=== PATIENT | male | born 1990 | race African-American/Black ===

== ENCOUNTER 2016-11-29 08:03 | Emergency (ER) | payer SELFPAY ==
[2016-11-29] MEDS ORDERED: Ondansetron HCl/PF 4 MG/2 ML Vial ONE (08:19)
[2016-11-29] MEDS ORDERED: Pantoprazole 40 MG VIAL ONE (08:19)
[2016-11-29 08:41] LABS: #Basophils 0.1 thou/uL (0.0-0.2); #Eosinphils 0.2 thou/uL (0.0-0.7); #Lymphocytes 2.1 thou/uL (1.20-3.40); #Monocytes 0.6 thou/uL (0.11-0.59); #Neutrophils 6.3 thou/uL (1.40-6.50); %Basophils 1.5 % (0.0-1.0); %Eosinophils 1.9 % (0.0-10.0); %Lymphocytes 22.8 % (21.0-51.0); %Monocytes 6.4 % (0.0-10.0); %Neutrophils 67.4 % (42.0-75.0); Hemoglobin 14.3 g/dL (14.0-18.0); Mean Corpuscular HGB CONC 34.3 g/dL (32.0-36.0); Mean Corpuscular Hemoglobin 32.6 pg (27.0-31.0); Mean Corpuscular Volume 94.9 fl (80.0-94.0); Mean Platelet Volume 8.3 fL (7.4-10.4); Platelet Count 224 thou/uL (130-400); RBC Distribution Width 12.1 % (11.5-14.5); Red Blood Cell (RBC) Count 4.38 mill/uL (4.70-6.10); White Blood Cell (WBC) Count 9.3 thou/uL (4.8-10.8)
[2016-11-29 08:56] LABS: ALT (SGPT) 16 U/L (8-55); AST (SGOT) 21 U/L (5-34); Albumin 4.5 g/dL (3.5-5.0); Alkaline Phosphatase 64 U/L (40-150); Anion Gap 16 mmol/L (10-20); BUN (Urea Nitrogen) 10 mg/dL (8.9-20.6); Bilirubin, Total 0.7 mg/dL (0.2-1.2); Calc. Creatinine Clearance 0 mL/min (70-130); Calcium 9.1 mg/dL (7.8-10.44); Carbon Dioxide 20 mmol/L (22-29); Chloride 108 mmol/L (98-107); Estimated GFR-MDRD Greater than 90; Globulin 3.6 g/dL (2.4-3.5); Glucose 95 mg/dL (70-105); Lipase 27 U/L (8-78); Potassium 4.4 mmol/L (3.5-5.1); Protein, Total 8.1 g/dL (6.0-8.3); Sodium 140 mmol/L (136-145)
[2016-11-29 09:09] LABS: Blood, Urine Negative (Negative); Clarity Clear (Clear); Glucose, Urine (Dipstick) Negative (Negative); Leukocyte Trace (Negative); Nitrite Negative (Negative); Protein, Urine (Dipstick) Trace mg/dL (Neg-Trace); Specific Gravity, Urine 1.015 (1.005-1.030); pH, Urine 6.5 (5.0-9.0)
[2016-11-29 09:16] LABS: Bilirubin Negative (Negative)
[2016-11-29 09:17] LABS: Bacteria/HPF None Seen HPF (None Seen); RBC/HPF None Seen HPF (0-3); Squamous Epithelial 0-3 HPF (0-3); WBC/HPF 0-3 HPF (0-3)
--- NOTE | 2016-11-29 17:57 | RAD ---
ACUTE ABDOMEN SERIES: Date: 11/29/16 Comparison is made with the 12/08/14 study. FINDINGS: Supine and erect films show no free air beneath the diaphragm. The gas pattern is nonspecific with g as seen in nondistended large and small bowel. A mildly increased amount of fecal material is seen i n the colon. There is no distention of the stomach. The bones and soft tissues showed no acute sanders es. Pelvic calcifications appear to be phleboliths and are no different than before. A chest film in the series is also compared with the 12/08/14 study. The heart remains normal in siz e and the lungs are clear. IMPRESSION: Nonspecific abdominal findings. POS: HOME
== END 2016-11-29 10:35 | disposition home or self-care (01) ==
LOC: BURERS 08:03
DX: K27.9 Peptic ulcer, site unspecified, unspecified as acute or chronic, without hemorrhage or perforation (principal); F17.210 Nicotine dependence, cigarettes, uncomplicated
CPT/HCPCS: 74022; 80053; 81003; 81015; 83690; 85025; 96361; 96374; 96375; C9113; J2405

== ENCOUNTER 2017-06-05 06:42 | Emergency (ER) | payer SELFPAY | END 2017-06-05 07:46 | disposition home or self-care (01) | LOC: BURERS 06:42 | DX: J01.90 Acute sinusitis, unspecified (principal); B96.89 Other specified bacterial agents as the cause of diseases classified elsewhere; J20.9 Acute bronchitis, unspecified; F32.9 Major depressive disorder, single episode, unspecified; F17.210 Nicotine dependence, cigarettes, uncomplicated | CPT/HCPCS: 99283 ==

== ENCOUNTER 2019-10-05 14:35 | Emergency (ER) | payer SELFPAY ==
[2019-10-05] MEDS ORDERED: Ondansetron PF 4 MG/2 ML Vial ONE (14:56)
== END 2019-10-05 15:26 | disposition home or self-care (01) ==
LOC: BURERS 14:35
DX: T67.5XXA Heat exhaustion, unspecified, initial encounter (principal); F32.9 Major depressive disorder, single episode, unspecified; F17.210 Nicotine dependence, cigarettes, uncomplicated; R11.2 Nausea with vomiting, unspecified
CPT/HCPCS: 96374; J2405

== ENCOUNTER 2020-02-17 17:27 | Emergency (ER) | payer OTHER ==
[2020-02-18 13:18] LABS: SARS-CoV-2 MS2 Positive; SARS-CoV-2 N Gene Negative; SARS-CoV-2 S Gene Negative; SARS-CoV-2 by NAA Not Detected (NotDetected); SARS-CoV-2 orf1ab Negative
== END 2020-02-17 18:15 | disposition home or self-care (01) ==
LOC: BURERS 17:27
DX: R05 Cough (principal); M79.10 Myalgia, unspecified site; F17.210 Nicotine dependence, cigarettes, uncomplicated; Z20.828 Contact with and (suspected) exposure to other viral communicable diseases
CPT/HCPCS: 87635; 99283; U0003

== ENCOUNTER 2021-02-02 07:10 | Emergency (ER) | payer OTHER, SELFPAY ==
[2021-02-02] MEDS ORDERED: Dexamethasone 4 MG TAB ONE (07:34)
== END 2021-02-02 07:39 | disposition home or self-care (01) ==
LOC: BURERS 07:10
DX: J02.9 Acute pharyngitis, unspecified (principal); F17.210 Nicotine dependence, cigarettes, uncomplicated; R59.0 Localized enlarged lymph nodes; R68.83 Chills (without fever); R53.83 Other fatigue
CPT/HCPCS: 99282; J8540

== ENCOUNTER 2021-11-30 11:42 | Emergency (ER) | payer SELFPAY ==
[2021-11-30] MEDS ORDERED: Tetracaine 0.5% PF 4 ML BOT ONE (12:32)
[2021-11-30] MEDS ORDERED: Boostrix 0.5 ML (Tdap) VIAL ONE (12:50)
== END 2021-11-30 12:56 | disposition home or self-care (01) ==
LOC: BURERS 11:42
DX: H01.003 Unspecified blepharitis right eye, unspecified eyelid (principal); L03.211 Cellulitis of face; F17.210 Nicotine dependence, cigarettes, uncomplicated
CPT/HCPCS: 90471; 90715; 99283